=== PATIENT | male | born 1990 | race Caucasian/White ===

== ENCOUNTER 2020-09-19 10:24 | Emergency (ER) | payer OTHER, SELFPAY ==
[2020-09-19 10:40] VITALS: BP 128/60; PULSE 67; RESP 16; TEMP 36.7; O2SAT 100
--- NOTE | 2020-09-19 11:04 | ED.SKABFB ---
HPI - Skin/Abscess/Foreign Bdy General Chief complaint: Skin/Abscess/Foreign Body Stated complaint: Extremity Injury, Lower Source: patient Mode of arrival: ambulatory Limitations: no limitations History of Present Illness HPI narrative: Patient is a 29-year-old male who presents with a laceration to left foot. He reports taking garbage out last night when he stepped on a piece of a broken cup. She reports wound cleansed last night. Reports tetanus up-to-date. Denies other injuries. MD complaint: laceration Related Data Allergies Allergy/AdvReac Type Severity Reaction Status Date / Time No Known Allergies Allergy Unverified 08/21/12 11:09 Review of Systems Review of Systems: Narrative: CONSTITUTIONAL: Denies fever, chills, or sweats. EYES: Denies visual changes, redness, or discharge. ENT: Denies rhinorrhea, congestion, sore throat, or otalgia. CARDIOVASCULAR: Denies chest pain, palpitations, or edema. RESPIRATORY: Denies cough or dyspnea. GASTROINTESTINAL: Denies abdominal pain, nausea, vomiting, or diarrhea. GENITOURINARY: Denies dysuria or hematuria. SKIN: Laceration to left foot MUSCULOSKELETAL: Denies back pain, joint pain, or myalgia. NEUROLOGIC: Denies headache, numbness, dizziness, or weakness. PSYCHIATRIC: Denies anxiety or depression. PMFSH Past Medical History Medical History No significant past medical history Surgical History Surgical History No significant past surgical history Family History Family History (Updated 09/19/20 @ 11:53 by JENNIFER Schneider) Other No significant family history Social History Social History (Updated 09/19/20 @ 11:53 by JENNIFER Schneider) Smoking status: Never smoker Alcohol intake: current Alcohol use details: Occasional Substance use: never Living arrangements: with family Occupation/Education: occupation Exam Narrative: Exam Narrative: GENERAL: Well-appearing, well-nourished, and in no acute distress. HEAD: Normocephalic, atraumatic. EYES: No redness or drainage. ENT: Mucous membranes pink and moist. CHEST: No respiratory distress. Clear to auscultation. HEART: Regular rate and rhythm. EXTREMITIES: Normal range of motion. No edema. SKIN: Approximate 2.5 cm linear laceration to plantar left foot. NEURO: No focal deficits. Alert and oriented x3. Gait steady. PSYCH: Normal affect. No signs of depression or anxiety. Course Vital Signs Vital signs: Vital Signs Temperature 36.7 C 09/19/20 10:40 Pulse Rate 67 09/19/20 10:40 Respiratory Rate 16 09/19/20 10:40 Blood Pressure 128/60 09/19/20 10:40 Pulse Oximetry 100 09/19/20 10:40 Temperature 36.7 C 09/19/20 10:40 Pulse Rate 67 09/19/20 10:40 Respiratory Rate 16 09/19/20 10:40 Blood Pressure 128/60 09/19/20 10:40 Pulse Oximetry 100 09/19/20 10:40 Reviewed. Patient has been instructed to follow-up with his PCP regarding his blood pressure. Procedures Laceration Laceration 1: Date: 09/19/20 Time: 11:20 Site: other (Foot) Side (If applicable): left Size (cm): 2.5 Description: linear Depth: simple, single layer Local Anesthetic: lidocaine 1% Amount of anesthesia used (mL): 2 Pre-repair: irrigated ====== Skin Level ====== Skin layer closed with: nylon Size (cm): 5-0 Number of sutures: 4 Technique: simple, interrupted ====== Subcutaneous Layer ====== ====== Muscle Layer ====== ====== Tendon Layer ====== Dressing: Steri-Strips applied, Telfa, 4 x 4 and Coban MDM - Skin/Abscess/Foreign Bdy MDM Narrative Medical decision making narrative: Patient has laceration to plantar left foot. 4 loose sutures placed in his wound occurred last p.m. Steri-Strips covering wound. Patient instructed on wound care. Tetanus
== END 2020-09-19 11:45 | disposition home or self-care (01) ==
PROVIDERS: Emergency Provider Nurse Practitioner
DX: S91.312A Laceration without foreign body, left foot, initial encounter (principal); W26.9XXA Contact with unspecified sharp object(s), initial encounter
CPT/HCPCS: 12001; 99203; G0463

== ENCOUNTER 2020-12-11 06:04 | Emergency (ER) | payer OTHER, SELFPAY ==
--- NOTE | ~2020-12-11 | CT_ITS ---
EXAMINATION: CT abdomen pelvis w con DATE: 12/11/2020 07:43 INDICATION: Abdominal pain, nausea, vomiting and diarrhea. TECHNIQUE: Computed tomography (CT) of the abdomen and pelvis was performed with 100 mL Omnipaque-350 intravenous contrast. Automated exposure control and iterative reconstruction technique were employe d. The dose-length product was 348.35 mGy-cm. COMPARISON: None FINDINGS: Lung bases are clear. The visualized inferior heart is normal. No pericardial or pleural effusion. Li helio, gallbladder, pancreas, bilateral adrenal glands and kidneys are normal. Essentially noted are a pair of smaller accessory right renal arteries in addition to the main right renal artery. Splenic ca lcification consistent with old granulomatous disease. Fluid throughout the otherwise normal-appearin g colon consistent with diarrhea. Small bowel and appendix are normal. Bladder is normal. No free int raperitoneal gas or fluid. No pathologically enlarged abdominal or pelvic lymphadenopathy. Bones are unremarkable. IMPRESSION: 1. Fluid in the colon consistent with diarrhea. Otherwise no acute intra-abdominal/pelvic process. Reviewed, dictated and finalized at location A. IMPRESSION: 1. Fluid in the colon consistent with diarrhea. Otherwise no acute intra-abdomi nal/pelvic process.
--- NOTE | 2020-12-11 06:20 | ED.NAVMDI ---
HPI - Nausea/Vomiting/Diarrhea General Chief complaint: Nausea/Vomiting/Diarrhea <Nathan Bradshaw DO - Last Filed: 12/11/20 06:22> Stated complaint: n/v/d, chills <Nathan Bradshaw DO - Last Filed: 12/11/20 06:22> Time Seen by Provider: 12/11/20 06:09 <Nathan Bradshaw DO - Last Filed: 12/11/20 06:22> Source: RN notes reviewed <Nathan Bradshaw DO - Last Filed: 12/11/20 06:22> History of Present Illness HPI Narrative: Patient presents to emergency department from home for nausea vomiting diarrhea. Patient states symptoms again approximately 10:00 last night. States he has had numerous episodes of nausea vomiting and diarrhea states is associated with abdominal pain diffusely throughout the abdomen described as cramping states he has had chills and subjective fever but no measured fever he denies any cough shortness of breath chest pain or any other symptoms. The patient states his son has been ill for the past 3 days with a fever but denies any abdominal complaints with the son states his son was tested for Covid and RSV both were negative results <Nathan Bradshaw DO - Last Filed: 12/11/20 06:22> Related Data Home medications: Home Medications Medication Instructions Recorded Confirmed No Home Medications 12/11/20 12/11/20 <Nathan Bradshaw DO - Last Filed: 12/11/20 06:22> Allergies/Adverse reactions: Allergies Allergy/AdvReac Type Severity Reaction Status Date / Time No Known Allergies Allergy Verified 12/11/20 06:30 <Nathan Bradshaw DO - Last Filed: 12/11/20 06:22> Review of Systems Review of Systems: Narrative: Gen.: Reports subjective fever and chills ENT: Denies congestion Respiratory: Denies shortness of breath or cough CV: Denies chest pain or palpitations GI: See HPI denies burning, urgency, frequency or hematuria Musculoskeletal: Denies back pain or muscle pain Neuro: Denies numbness, tingling, weakness or focal weakness Skin: Denies rash Except as documented, all other systems reviewed and negative <Nathan Bradshaw DO - Last Filed: 12/11/20 06:22> PMFSH Past Medical History Medical History: Medical History No significant past medical history <Nathan Bradshaw DO - Last Filed: 12/11/20 06:22> Surgical History Surgical History: Surgical History No significant past surgical history <Nathan Bradshwa DO - Last Filed: 12/11/20 06:22> Family History Family History: Family History (Updated 09/19/20 @ 11:53 by JENNIFER Schneider) Other No significant family history <Nathan Bradshaw DO - Last Filed: 12/11/20 06:22> Social History Social History: Social History Smoking status: Never smoker Alcohol intake: current Substance use: never <Nathan Bradshaw DO - Last Filed: 12/11/20 06:22> Exam Narrative: Exam Narrative: APPEARANCE: No acute distress, nontoxic, resting in bed HEENT: Normocephalic, atraumatic, OMM RESPIRATORY: No respiratory distress, clear to auscultation bilaterally with no rhonchi wheezing or rales CARDIOVASCULAR: RRR s murmur ABDOMINAL: Soft nondistended, diffusely tender to palpation no rebound or guarding MUSCULOSKELETAl: Moves all extremities. No clubbing, cyanosis or edema. NEURO: Awake and alert. Following commands, speech normal, no focal deficits SKIN:: Warm, dry. Normal Color PSYCHIATRIC: Normal affect/mood <Nathan Bradshaw DO - Last Filed: 12/11/20 06:22> Course Course Emergency Course: Patient informed results. Requesting a second liter of fluid. Discharge home. <Luciano Rodriguez MD - Last Filed: 12/11/20 08:11> Vital Signs Vital signs: Vital Signs Temperature 97.7 F 12/11/20 06:23 Pulse Rate 89 12/11/20 06:23 Respiratory Rate 18 12/11/20 06:23 Blood Pressu
[2020-12-11 06:23] VITALS: BP 135/60; PULSE 89; RESP 18; TEMP 36.5; O2SAT 98
[2020-12-11 06:31] VITALS: BP 122/65; PULSE 78; RESP 18; O2SAT 99
[2020-12-11] MEDS: ONDANSETRON INJ 4 MG/2 ML VIAL IV PUSH (06:37)
[2020-12-11] MEDS: SODIUM CHLORIDE 0.9% IV 1,000 ML 999 ML IV CONT ×2 (06:38→08:22)
[2020-12-11 06:43] LABS: Basophils Percent Auto 0.3 % (0.2-1.2); Eosinophils Percent Auto 0.1 % (0-4.4); Hematocrit 46.6 % (42.0-52.0); Hemoglobin 15.9 g/dL (14.0-18.0); Immature Granulocyte Absolute 0.05 K/mm3 (0.00-0.031); Immature Granulocyte Percent A 0.4 % (0-0.5); Lymphocytes Absolute Auto 0.18 K/mm3 (0.9-3.2); Lymphocytes Percent Auto 1.6 % (18.3-44.2); Mean Corpuscular HGB Conc 34.1 g/dl (32-36); Mean Corpuscular Volume 84.9 fl (80-100); Mean Platelet Volume 9.1 fl (7.4-10.4); Monocytes Absolute Auto 0.6 K/mm3 (0.1-0.6); Monocytes Percent Auto 5.5 % (2.6-8.5); Neutrophils Absolute Auto 10.3 K/mm3 (1.3-6.7); Neutrophils Percent Auto 92.1 % (45.5-73.1); Platelet Count Result 172 k/mm3 (150-375); Red Blood Count 5.49 M/mm3 (4.6-6.20); Red Cell Distribution Width 11.9 % (11.5-14.5); White Blood Count 11.2 K/mm3 (4.5-10.0)
[2020-12-11 06:53] LABS: Alanine Aminotransferase 31 U/L (4-50); Albumin Level 4.6 g/dL (3.5-5.1); Alkaline Phosphatase 72 U/L (38-126); Anion Gap 7 mmol/L (8-16); Aspartate Amino Transferase 32 U/L (17-59); Bilirubin,Total 0.5 mg/dL (0.2-1.3); Blood Urea Nitrogen 17 mg/dL (9-20); Carbon Dioxide 28 mmol/L (22-30); Chloride 105 mmol/L (98-107); Estimated CRCL calculation 105 ml/min; Estimated Glomerular Filt Rate > 60; Glucose 108 mg/dL (75-110); Lipase 51 U/L (23-300); Potassium 4.2 mmol/L (3.4-5.0); Sodium 140 mmol/L (137-145)
[2020-12-11 07:01] VITALS: BP 120/54; PULSE 73; RESP 18; TEMP 36.6; O2SAT 98
[2020-12-11 07:07] LABS: Add Urine Microscopic? YES; Appearance Urine Clear (Clear); Bacteria Urine Trace /hpf; Bilirubin Urine Negative (Negative); Blood Urine Negative (Negative); Color Urine Yellow (Yellow); Glucose Urine UA Negative (Negative); Ketones Urine Negative (Negative); Leukocyte Esterase Ur Negative LEU/UL (Negative); Mucus Urine Rare /lpf; Nitrate Urine Negative (Negative); Protein Urine 1+ mg/dL (Negative); RBC Urine 0-2 /hpf (0-2); Specific Grav Ur 1.027 (1.001-1.035); Urobilinogen Urine Negative mg/dL (<2.0); WBC Urine 0-3 /hpf
[2020-12-11 08:01] VITALS: BP 112/46; PULSE 69; RESP 15; O2SAT 99
[2020-12-11 09:06] VITALS: BP 113/61; PULSE 73; RESP 18; TEMP 36.6; O2SAT 100
[2020-12-11 10:00] VITALS: BP 121/71; PULSE 72; RESP 18; TEMP 36.4; O2SAT 100
== END 2020-12-11 10:02 | disposition home or self-care (01) ==
PROVIDERS: Emergency Provider Emergency Medicine
DX: K52.9 Noninfective gastroenteritis and colitis, unspecified (principal)
CPT/HCPCS: 36415; 74177; 80053; 81001; 83690; 85025; 96361; 96365; 96375; 99284; J0131; J2405; J7030; Q9967

== ENCOUNTER → 2021-10-08 01:08 | Outpatient (CLI) | payer OTHER, SELFPAY ==
[2021-10-09 15:56] LABS: SARS-CoV-2 RNA PCR Negative
== END ==
PROVIDERS: PCP Physician Assistant; Visit Provider Physician Assistant
DX: R68.89 Other general symptoms and signs (principal); Z20.822 Contact with and (suspected) exposure to COVID-19
CPT/HCPCS: C9803; U0003; U0005

== ENCOUNTER 2022-02-21 18:28 | Emergency (ER) | payer OTHER, SELFPAY ==
--- NOTE | ~2022-02-21 | XR_ITS ---
EXAMINATION: XR lumbar spine min 4V DATE: 02/21/2022 19:08 INDICATION: Low back pain TECHNIQUE: Anteroposterior, lateral, and bilateral oblique views of the lumbar spine, and cone-down l ateral view of the lumbosacral junction were obtained. COMPARISON: None. FINDINGS: There is no fracture, dislocation, or subluxation. The vertebral body heights, alignment, a nd intervertebral disc spaces are normal. The paravertebral soft tissues are unremarkable. Small dege nerative osteophytes project from the anterior endplates of multiple vertebral bodies. There is mild facet osteoarthritis of the lower lumbar spine. IMPRESSION: 1. No acute osseous abnormality. Reviewed, dictated and finalized at location F.
[2022-02-21 18:32] VITALS: BP 125/71; PULSE 73; RESP 16; TEMP 36.8; O2SAT 100
--- NOTE | 2022-02-21 18:49 | ED.BACK ---
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 States he was doing a lift of 285 pounds which he has done in the past, but states he felt the pain when bending over but continued the left. He states the pain wraps from the left lower back to the front of the left hip and shoots down the thigh towards the left knee. He took a muscle relaxer, used an inversion table, stretched without relief. Pain worse when bending, better with rest. Denies weakness or saddle paresthesia to the lower extremities. Related Data Allergies Allergy/AdvReac Type Severity Reaction Status Date / Time No Known Allergies Allergy Verified 12/11/20 06:30 Review of Systems Review of Systems: CONSTITUTIONAL: Denies body aches, fever, chills EYES: Denies visual changes ENT: Denies rhinorrhea, congestion CARDIOVASCULAR: Denies chest pain, palpitations, or edema. RESPIRATORY: Denies cough or dyspnea. GASTROINTESTINAL: Denies abdominal pain, nausea, vomiting, or diarrhea. SKIN: Denies rash, itching, or wounds. MUSCULOSKELETAL:Reports back pain NEUROLOGIC: Denies headache All systems reviewed & are unremarkable except as noted in HPI and below PMFSH Past Medical History Medical History No significant past medical history Surgical History Surgical History No significant past surgical history Family History Family History (Updated 09/19/20 @ 11:53 by Clare Heart, JENNIFER) Other No significant family history Social History Social History Smoking status: Never smoker Alcohol intake: current Alcohol use details: Occasional Substance use: never Comments At time of signature, I have reviewed and agree with nursing past medical, surgical, social and family history unless otherwise noted. Please see nursing chart for further information. There is no relevant family history pertinent to the presenting complaint Exam Narrative: GENERAL: Appears in pain HEAD: Normocephalic, atraumatic. EYES: PERRLA, conjunctivae clear NECK: Supple. CHEST: Speaks in full sentences. No respiratory distress. HEART: Regular rate and rhythm. Normal and equal peripheral pulses. MUSC: No vertebral point tenderness. Bilateral lower extremities have normal strength and sensation, decreased range of motion when bending due to pain. No edema, lesions, or ecchymosis to the back, No open wounds, skin tenting, or obvious deformity; spinal alignment normal, skin warm, dry, pink. Capillary refill less than 3 seconds. Gait steady. SKIN: Warm, dry, no rash. NEURO: Alert and oriented x3. PSYCH: Normal mood and affect Course Course Emergency Course: Patient is aware of diagnosis, understands and agrees to treatment plan. Anticipatory guidance given. Patient agrees to follow-up as directed and is aware of reasons to seek care at the emergency department. Portions of this record may have been created with voice recognition software Level of Care: Express Care Visit Vital Signs Vital signs: Vital Signs Temperature 98.3 F 02/21/22 18:32 Pulse Rate 73 02/21/22 18:32 Respiratory Rate 16 02/21/22 18:32 Blood Pressure 125/71 02/21/22 18:32 Pulse Oximetry 100 02/21/22 18:32 Oxygen Delivery Room Air 02/21/22 18:32 Temperature 98.3 F 02/21/22 18:32 Pulse Rate 73 02/21/22 18:32 Respiratory Rate 16 02/21/22 18:32 Blood Pressure 125/71 02/21/22 18:32 Pulse Oximetry 100 02/21/22 18:32 Oxygen Delivery Room Air 02/21/22 18:32 Reviewed MDM -
== END 2022-02-21 19:35 | disposition home or self-care (01) ==
PROVIDERS: Emergency Provider Nurse Practitioner Family; PCP Physician Assistant
DX: M54.16 Radiculopathy, lumbar region (principal); S39.012A Strain of muscle, fascia and tendon of lower back, initial encounter; X50.0XXA Overexertion from strenuous movement or load, initial encounter; X50.3XXA Overexertion from repetitive movements, initial encounter; Y93.B3 Activity, free weights
CPT/HCPCS: 72110; 99213; G0463

== ENCOUNTER 2023-07-02 13:18 | Outpatient (CLI) | payer OTHER, SELFPAY ==
--- NOTE | ~2023-07-02 | MR_ITS ---
EXAMINATION: MR humerus LT wo con, MR shoulder LT wo con DATE: 07/02/2023 15:04 INDICATION: Muscle and tendon injury with left shoulder/arm pain post pushing injury with palpable po p 5 days prior. TECHNIQUE: 1. Magnetic resonance imaging (MRI) of the left shoulder was performed without intravenous contrast. Sequences included axial PD-weighted FS FSE, coronal oblique PD-weighted FS FSE, coronal oblique T2-w eighted FS FSE, sagittal PD-weighted FS FSE, and sagittal T1-weighted SE. 2. MRI of the left upper arm was performed without intravenous contrast. Sequences included axial, sa gittal and coronal T1-weighted FSE and fluid sensitive FSE STIR. [id number] included the proximal two thirds of the humerus. COMPARISON: None. FINDINGS: Coracoacromial arch: The acromion undersurface is curved in morphology (type II). The coracoacromial ligament is normal. M ild acromioclavicular osteoarthritis. Rotator cuff: The supraspinatus, infraspinatus and teres minor tendons are normal. The subscapularis tendon is norm al. Normal rotator cuff muscle bulk and signal. Biceps tendon, glenoid labrum and glenohumeral cartilage: Long head of the biceps tendon is normal. Glenoid labrum is normal. Glenohumeral cartilage is normal. Fluid: Physiologic amount of fluid in the glenohumeral joint and biceps tendon sheath. No loose osteochondr al bodies. No abnormal fluid signal in the subacromial/subdeltoid bursa consistent with mild bursitis . Bones/other: Bone alignment is normal. Normal marrow signal with no edema, fracture or abnormal marrow replacing p rocess. There is avulsion of the humeral attachment of the pectoralis major tendon which is retracte d approximately 1.7 cm medially from the footplate. Small fluid collection at the site of the tendon tear which surrounds the myotendinous junction of the long head of the biceps tendon. IMPRESSION: 1. Avulsion of the humeral attachment of the pectoralis major tendon with 1.7 cm medial retraction of the torn tendon. Reviewed, dictated and finalized at location A. IMPRESSION: 1. Avulsion of the humeral attachment of the pectoralis major tendon with 1.7 c m medial retraction of the torn tendon.
== END 2023-07-02 13:19 ==
LOC: GOSHIMG 13:19
PROVIDERS: PCP Physician Assistant; Visit Provider Physician Assistant
DX: S42.442A Displaced fracture (avulsion) of medial epicondyle of left humerus, initial encounter for closed fracture (principal)
CPT/HCPCS: 73218; 73221

== ENCOUNTER 2023-10-26 14:59 | Emergency (ER) | payer OTHER, SELFPAY ==
[2023-10-26 15:11] VITALS: BP 118/78; PULSE 60; RESP 16; TEMP 36.5; O2SAT 100
--- NOTE | 2023-10-26 15:30 | ED.URI ---
HPI - URI/Sore Throat General Chief Complaint: Upper Respiratory Infection Stated Complaint: SORE THROAT/SWOLLEN GLANDS/CHEST CONGESTION/COUGH Time Seen by Provider: 10/26/23 15:20 Source: patient and RN notes reviewed Mode of arrival: ambulatory Limitations: no limitations History of Present Illness HPI Narrative: Patient presents today with a 4 day history of sore throat, swollen glands, chest congestion, and cough. He also reports some mild postnasal drainage that is most present in the morning when he wakes up. He currently rates his pain 7/10 and has been taking Tylenol with mild relief. Related Data Home Medications Medication Instructions Recorded Confirmed No Home Medications 10/26/23 10/26/23 Allergies Allergy/AdvReac Type Severity Reaction Status Date / Time No Known Allergies Allergy Verified 10/26/23 15:08 Review of Systems Review of Systems: CONSTITUTIONAL: Denies body aches, fever, chills, or sweats. EYES: Denies visual changes, redness, or discharge. ENT: Denies rhinorrhea, congestion, or otalgia.+ sore throat, postnasal drip, swollen glands CARDIOVASCULAR: Denies chest pain, palpitations, or edema. RESPIRATORY: Denies dyspnea.+ cough, chest congestion GASTROINTESTINAL: Denies abdominal pain, nausea, vomiting, or diarrhea. GENITOURINARY: Denies dysuria or hematuria. SKIN: Denies rash, itching, or wounds. MUSCULOSKELETAL: Denies back pain, joint pain, or myalgia. NEUROLOGIC: Denies headache, numbness, tingling, or weakness. PSYCH: Denies depression or anxiety. [facility] Past Medical History Medical History No significant past medical history Surgical History Surgical History No significant past surgical history Family History Family History Other No significant family history Social History Social History Smoking status: Never smoker Alcohol intake: current Alcohol use details: Occasional Substance use: never Living arrangements: with family Occupation/Education: occupation Comments At time of signature, I have reviewed and agree with nursing past medical, surgical, social and family history unless otherwise noted. Please see nursing chart for further information. There is no relevant family history pertinent to the presenting complaint Exam Narrative: GENERAL: Well-appearing, well-nourished, and in no acute distress. HEAD: Normocephalic, atraumatic. EYES: EOMI. No redness or drainage. Conjunctivae normal. ENT: Mucous membranes pink and moist. Nares clear. No rhinorrhea. TMs normal bilaterally. Throat erythematous in the posterior oropharynx with small amount of postnasal drainage. No swelling or exudate in the throat. Uvula midline. NECK: Normal AROM. Supple. Left posterior cervical chain lymphadenopathy. CHEST: No respiratory distress. Clear to auscultation. HEART: Regular rate and rhythm. No murmur appreciated. EXTREMITIES: Normal range of motion. No edema. SKIN: Warm, dry, no rash. Capillary refill normal. Normal skin turgor. NEURO: No focal deficits. Alert and oriented x3. Gait steady. PSYCH: Normal affect. No signs of depression or anxiety. Course Course Level of Care: Express Care Visit Vital Signs Vital signs: Vital Signs Temperature 97.7 F 10/26/23 15:11 Pulse Rate 60 10/26/23 15:11 Respiratory Rate 16 10/26/23 15:11 Blood Pressure 118/78 10/26/23 15:11 Pulse Oximetry 100 10/26/23 15:11 Temperature 97.7 F 10/26/23 15:11 Pulse Rate 60 10/26/23 15:11 Respiratory Rate 16 10/26/23 15:11 Blood Pressure 118/78 10/26/23 15:11 Pulse Oximetry 100 10/26/23 15:11 Reviewed MDM - URI/Sore Throat MDM Narrative Medical decision making narrative: Patient declines
== END 2023-10-26 15:33 | disposition home or self-care (01) ==
PROVIDERS: Emergency Provider Nurse Practitioner; PCP Physician Assistant
DX: J06.9 Acute upper respiratory infection, unspecified (principal)
CPT/HCPCS: 87081; 87880; 99213; G0463